=== PATIENT | male | born 1950 | race Hispanic/Latino ===

== ENCOUNTER 2019-08-09 11:28 | Outpatient (CLI) | payer MEDICARE ==
--- NOTE | 2019-08-09 12:23 | RAD ---
XR Hip Rt 2-3 View INDICATION: Right inguinal pain and right hip pain COMPARISON: None FINDINGS: Bones: No acute osseous abnormality. Bone mineralization appears within normal limits. Hip joint: There is mild osteoarthrosis of the right hip. SI joints and symphysis pubis: There is mild degenerative change involving the right SI joint. There is partial visualization of spinal instrumentation involving L5 and S1. Intrapelvic contents: Visualized bowel gas pattern is within normal limits. Surrounding soft tissues: Radiographically normal. IMPRESSION: 1. Mild osteoarthrosis of the right hip. 2. No acute fracture or subluxation demonstrated.
== END 2019-08-09 11:29 | disposition home or self-care (01) ==
LOC: RAD 11:28
PROVIDERS: ATTEND Anesthesiology Pain Medicine
DX: M16.11 Unilateral primary osteoarthritis, right hip (principal)